=== PATIENT | male | born 1945 | race Caucasian/White ===

== ENCOUNTER → 2022-06-25 08:29 | Outpatient (BNVA) | payer SELFPAY | PROVIDERS: PCP Internal Medicine; Visit Provider Psychiatry & Neurology Neurology | DX: Z13.89 Encounter for screening for other disorder (principal) ==

== ENCOUNTER 2022-07-21 08:00 | Outpatient (RCR) | payer MEDICARE, SELFPAY | END 2023-02-23 11:13 | disposition home or self-care (01) | LOC: HO.PTWFD 08:00 | PROVIDERS: PCP Internal Medicine; Visit Provider Psychiatry & Neurology Neurology | DX: M79.652 Pain in left thigh (principal); M25.561 Pain in right knee | CPT/HCPCS: 97110; 97150; 97162; 97535 ==

== ENCOUNTER 2022-08-19 09:26 | Outpatient (REF) | payer MEDICARE, SELFPAY ==
--- NOTE | 2022-08-19 09:30 | EMG_ITS ---
Please see scanned EMG / Nerve Conduction Report. MTDD
== END 2022-08-19 09:27 | disposition home or self-care (01) ==
LOC: HO.NEURO 09:26
PROVIDERS: PCP Internal Medicine; Visit Provider Psychiatry & Neurology Neurology
DX: R20.0 Anesthesia of skin (principal); R20.2 Paresthesia of skin
CPT/HCPCS: 95885; 95909

== ENCOUNTER 2022-12-15 09:30 | Outpatient (AMB) | payer MEDICARE, SELFPAY ==
[2022-12-15 09:33] VITALS: BP 140/80; PULSE 62; O2SAT 99; BMI 24.4
--- NOTE | 2022-12-15 09:33 | A.OFFVIS_ITS ---
Intake Vital Signs 12/15/22 09:33 Height 5 ft 10 in Weight 170 lb 2 oz BMI 24.4 BP 140/80 H Blood Pressure Location Rt brachial Position Sitting Pulse 62 Pulse Source Pulse Oximeter Pulse Oximetry (%) 99 Oxygen Delivery Method Room Air Intake Visit Reasons: 3m f/u TREMORS - LVM to r/s MD out Intake Note: Patient presents for 3 month follow up tremors. Patient states i had a nerve conduction study done in august. Allergies metronidazole [From Flagyl] Allergy (Severe, Verified 12/15/22 09:39) Hives piroxicam Allergy (Severe, Verified 12/15/22 09:39) Angioedema Medication List - Last Reconciled 12/15/22 by Lluvia Roberts MD albuterol sulfate 90 mcg/actuation 0 mcg inhalation fluticasone propion-salmeterol 250-50 mcg/dose (Wixela Inhub) 1 ea inhalation BID hydrochlorothiazide 12.5 mg PO DAILY lisinopril 20 mg PO DAILY multivitamin 1 tab PO DAILY simvastatin 40 mg PO BEDTIME tamsulosin 0.4 mg PO DAILY HPI HPI Comments History of Present Illness Details 77y/o right handed male comes for evalua tion of tremors and tingling numbness in his left leg . His EMG was c/w -moderately severe axonal and demyelinating neuropathy.PT did not help much. He is more concerned about his sensory symptoms in his left leg. It started about 9 mths ago with mild tingling, numbness in his lateral thigh and leg and he had difficulty jogging because of the symptoms.He was jogging 2.5 miles 4 times a week prior to that .He felt his left leg was weaker , when he did leg extensions at the gym it was weaker. 3 mths later he had pain behind his right knee. He denies back pain. He denies any dysesthesias . No neck pain He is treating himself with acetaminophen . He also has long history of howard hand tremors, it is mild and episodic , stress worsens . It is usually with action. It does not affect his ADLs. His father had similar tremors. [facility] Medical History (Updated 12/15/22 @ 09:58 by Lluvia Roberts MD) Polyneuropathy Squamous cell cancer of scalp and skin of neck Renal calculi Asthma Diverticulosis CKD (chronic kidney disease) BPH (benign prostatic hyperplasia) Hyperlipidemia HTN (hypertension) Knee pain, right Back pain Numbness and tingling of left leg Left thigh pain Surgical History H/O hemorrhoidectomy Hx of tonsillectomy S/P hernia repair Hx of colonoscopy Family History Mother Dementia Father CAD (coronary artery disease) Brother CAD (coronary artery disease) Maternal Grandfather Colon cancer Son Schizophrenia Social History Alcohol intake: never Patient Tobacco Use Status: Never used Tobacco Physical Exam Vital Signs: Last Vital Signs Pulse 62 12/15/22 09:33 BP 140/80 H 12/15/22 09:33 Pulse Ox 99 12/15/22 09:33 Oxygen Delivery Method Room Air 12/15/22 09:33 BMI result Body Mass Index 24.4 Const General: cooperative, healthy appearing and comfortable Nutritional Appearance: average body habitus Orientation/consciousness: patient oriented x3 Limitations: no limitations Eyes Pupils: Equal, round and reactive pupils present Neuro Other: tightness in left thigh Right knee swelling General: patient oriented x3, tone normal, moves all extremities and no focal motor deficits Cranial nerves: Yes Facial sensation intact/muscles of mastication intact, Yes Equal, round and reactive pupils present, Yes Bilaterally intact EOM present, Yes Nystagmus not present, Yes Normal facial strength present, Yes Midline tongue present and Yes Symmetric palate elevation present Gait exam (Neuro): Antalgic gait present Motor exam (neuro): 5/5 motor strength present throughout and Normal motor muscle tone present throughout Deep tendon reflexes (DTR's): Right triceps reflex intensity grade: 1+, Left triceps reflex intensity grade: 1+, Rt Biceps (C5, C6): 1+, Left biceps reflex intensity grade: 1+, Right brachioradialis reflex intensity grade: 1+, Left brachioradialis reflex intensity grade: 1+, Right patellar reflex intensity grade: 1+ and Left patellar reflex intensity grade: 1+ Coordination: [id number] test normal Psych Appearance: grossly normal Assessment & Plan Assessment & Plan (1) Polyneuropathy: Code(s): G62.9 - Polyneuropathy, unspecified (2) Left thigh pain: Comment: likely muscular Code(s): M79.652 - Pain in left thigh (3) Numbness and tingling of left leg: Comment: ? meralgia Code(s): R20.0 - Anesthesia of skin; R20.2 - Paresthesia of skin Plan I will evaluate him with LP - CSF - albumino cytologic dissociation for possible causes of neuropathy Continue exercises. Orders: Orders FL guided lumbar puncture LP 12/15/22 G62.9 - Polyneuropathy, unspecified Coding Level of Care Code Est Pt Level 4 (13220) Diagnoses Polyneuropathy G62.9 Left thigh pain M79.652 Numbness and tingling of left leg R20.0; R20.2
== END 2022-12-15 10:03 | disposition home or self-care (01) ==
PROVIDERS: Visit Provider Psychiatry & Neurology Neurology
DX: G62.9 Polyneuropathy, unspecified (principal); M79.652 Pain in left thigh; R20.0 Anesthesia of skin; R20.2 Paresthesia of skin
CPT/HCPCS: 99214

== ENCOUNTER → 2022-12-15 09:30 | Outpatient (BNVA) | payer MEDICARE, SELFPAY | PROVIDERS: Visit Provider Psychiatry & Neurology Neurology | DX: G62.9 Polyneuropathy, unspecified (principal); M79.652 Pain in left thigh; R20.0 Anesthesia of skin; R20.2 Paresthesia of skin | CPT/HCPCS: 99212 ==

== ENCOUNTER 2023-01-15 09:18 | Day surgery (SDC) | payer MEDICARE, SELFPAY ==
--- NOTE | ~2023-01-15 | FL_ITS ---
FLUOROSCOPIC LUMBAR PUNCTURE INDICATION: Polyneuropathy Risks and benefits and possible complications were discussed with the patient and the consent form was signed. Patient was placed prone on the fluoroscopy table. The back was prepped and draped in routine sterile fashion. Betadine was used as a skin antiseptic. Utilizing fluoroscopic guidance, the L3-4 interlaminar space was accessed with a 22 gauge Jovon spinal needle and clear CSF fluid obtained passively at the needle hub. 8 cc of fluid was passively collected, and sent for analysis. The needle was removed without immediate complications. Total fluoroscopy time: 0.25 min FL/FL guided lumbar puncture LP IMPRESSION: Fluoroscopic lumbar puncture This procedure was performed by Kanu Baez PA-C and supervised by Dr. lKein.
[2023-01-15 09:35] VITALS: BMI 24.4
[2023-01-15 09:51] VITALS: BP 161/58; PULSE 72; RESP 18; TEMP 36.7; O2SAT 98
[2023-01-15 10:02] LABS: MANUAL DIFF FLAG NO
[2023-01-15 10:05] LABS: Basophils Absolute Auto 0.1 X10*3/uL (0.0-0.2); Basophils Percent Auto 0.7 % (0-2); Eosinophils Absolute Auto 0.2 X10*3/uL (0.0-0.4); Eosinophils Percent Auto 3.2 % (0-4); Hematocrit 40.1 % (42.0-52.0); Hemoglobin 13.1 g/dl (14.0-18.0); Imm Gran Abs Auto 0.03 X10*3/uL (0.00-0.03); Imm Gran Pct Auto 0.4 % (0.0-0.4); Lymphocytes Absolute Auto 1.1 X10*3/uL (1.2-4.9); Lymphocytes Percent Auto 15.9 % (20-40); Mean Corpuscular HGB Conc 32.7 g/dl (31.0-36.0); Mean Corpuscular Hemoglobin 31.5 pg (27.0-33.0); Mean Corpuscular Volume 96.4 fL (80.0-98.0); Mean Platelet Volume 9.4 fL (9.4-12.4); Monocytes Absolute Auto 0.6 X10*3/uL (0.1-1.2); Monocytes Percent Auto 8.6 % (2-11); Neutrophils Percent Auto 71.2 % (45-73); Platelet Count 257 X10*3/uL (160-400); Red Blood Count 4.16 X10*6/uL (4.60-5.80); Red Cell Distribution Width 11.7 % (11.0-16.0)
[2023-01-15 10:13] LABS: INTERNATIONAL NORM RATIO 0.9 (0.9-1.1); Prothrombin Time 10.8 SEC (11.1-13.3)
[2023-01-15 10:16] LABS: Partial Thromboplastin Time 30.9 SEC (26.0-36.4)
[2023-01-15 12:00] VITALS: BP 135/78; PULSE 63; RESP 16; TEMP 36.6; O2SAT 97
[2023-01-15 12:15] VITALS: BP 119/71; PULSE 64; RESP 16; O2SAT 97
[2023-01-15 12:28] LABS: CSF Appearance Clear, Colorless; CSF Tube # 2
[2023-01-15 12:30] VITALS: BP 128/71; PULSE 63; RESP 16; O2SAT 97
[2023-01-15 12:45] VITALS: BP 129/74; PULSE 87; RESP 16; O2SAT 97
[2023-01-15 12:50] LABS: Glucose CSF 53 mg/dL; Total Protein CSF 80.4 mg/dL (15-45)
[2023-01-15 13:00] VITALS: BP 134/73; PULSE 84; RESP 16; TEMP 36.6; O2SAT 97
[2023-01-15 13:29] LABS: Appearance CSF CLEAR; CSF Tube # 4; Color CSF COLORLESS; Neutrophils CSF 0 %; Red Blood Cell CSF 0 MM*3; White Blood Cell CSF 4 MM*3
[2023-01-15 13:30] LABS: Appearance CSF CLEAR; CSF Monos 20 %; CSF Monos 40 %; CSF Tube # 1; Color CSF COLORLESS; Lymphocytes CSF 60 %; Lymphocytes CSF 80 %; Neutrophils CSF 0 %; Red Blood Cell CSF 0 MM*3; White Blood Cell CSF 5 MM*3
[2023-01-19 23:48] LABS: Albumin 4.4 g/dL (3.6-5.1); IgG 870 mg/dL (600-1540); IgG Synthesis Rate -0.7 mg/24 h (-9.9-3.3); IgG, CSF 5.1 mg/dL (0.8-7.7)
[2023-01-20 22:44] LABS: Lyme IgG CSF Immunoblot NO BANDS DETECTED; Lyme IgM CSF Immunoblot NO BANDS DETECTED
== END 2023-01-15 13:21 | disposition home or self-care (01) ==
PROVIDERS: Physician Assistant Surgical; Radiology Diagnostic Radiology; PCP Internal Medicine; Visit Provider Psychiatry & Neurology Neurology
PROC: 009U3ZZ Drainage of Spinal Canal, Percutaneous Approach (ICD-10-PCS; CPT 62270; principal; 2023-01-15 11:00)
DX: G62.9 Polyneuropathy, unspecified (principal); M79.652 Pain in left thigh; R20.0 Anesthesia of skin; R20.2 Paresthesia of skin; C44.42 Squamous cell carcinoma of skin of scalp and neck; R25.1 Tremor, unspecified; I12.9 Hypertensive chronic kidney disease with stage 1 through stage 4 chronic kidney disease, or unspecified chronic kidney disease; N18.9 Chronic kidney disease, unspecified; J45.909 Unspecified asthma, uncomplicated; Z79.51 Long term (current) use of inhaled steroids; Z79.899 Other long term (current) drug therapy; Z88.8 Allergy status to other drugs, medicaments and biological substances
CPT/HCPCS: 36415; 62328; 82042; 82945; 84157; 84166; 85025; 85610; 85730; 86335; 86617; 87015; 87070; 87205; 89051

== ENCOUNTER → 2023-01-15 11:00 | Outpatient (BNV) | payer MEDICARE, SELFPAY | PROVIDERS: PCP Internal Medicine; Visit Provider Radiology Diagnostic Radiology | DX: G62.9 Polyneuropathy, unspecified (principal) | CPT/HCPCS: 62328 ==

== ENCOUNTER 2023-02-02 07:50 | Outpatient (AMB) | payer MEDICARE, SELFPAY ==
[2023-02-02 07:58] VITALS: BP 130/84; PULSE 71; O2SAT 98; BMI 24.9
--- NOTE | 2023-02-02 07:58 | MHC.OFFVIS ---
Intake Vital Signs 02/02/23 07:58 Height 5 ft 10 in Weight 173 lb 8 oz BMI 24.9 BP 130/84 Blood Pressure Location Rt brachial Position Sitting Pulse 71 Pulse Source Pulse Oximeter Pulse Oximetry (%) 98 Intake Visit Reasons: 1m f/u TREMORS (ok per MD)/Lvm Intake Note: Pt presents to the office today for a 1 month follow up for tremors. Accompanied by: Spouse Allergies metronidazole [From Flagyl] Allergy (Severe, Verified 02/02/23 07:58) Hives piroxicam Allergy (Severe, Verified 02/02/23 07:58) Angioedema Medication List - Last Reconciled 02/02/23 by Lluvia Roberts MD albuterol sulfate 90 mcg/actuation 0 mcg inhalation calcium carbonate (Calcium) 1,200 mg (2 x 600 mg calcium (1,500 mg)) PO DAILY cholecalciferol (vitamin D3) 25 mcg PO DAILY fluticasone propion-salmeterol 250-50 mcg/dose (Wixela Inhub) 1 ea inhalation BID hydrochlorothiazide 12.5 mg PO DAILY lisinopril 20 mg PO DAILY multivitamin 1 tab PO DAILY pantoprazole (Protonix) 40 mg PO DAILY prednisone 60 mg (3 x 20 mg) PO DAILY simvastatin 40 mg PO BEDTIME tamsulosin 0.4 mg PO DAILY HPI HPI Comments History of Present Illness Details 77y/o right handed male comes for follow up. His LP showed albuminocytologic dissociation c/w CIDP His EMG was c/w -moderately severe axonal and demyelinating neuropathy.PT did not help much. He is more concerned about his sensory symptoms in his left leg. It started about 12 mths ago with mild tingling, numbness in his lateral thigh and leg and he had difficulty jogging because of the symptoms.He was jogging 2.5 miles 4 times a week prior to that .He felt his left leg was weaker , when he did leg extensions at the gym it was weaker. 3 mths later he had pain behind his right knee. He denies back pain. He denies any dysesthesias . No neck pain He is treating himself with acetaminophen . He also has long history of howard hand tremors, it is mild and episodic , stress worsens . It is usually with action. It does not affect his ADLs. His father had similar tremors. COUNTS INCLUDE 234 BEDS AT THE [facility] Medical History (Updated 02/02/23 @ 09:08 by Lluvia Roberts MD) CIDP (chronic inflammatory demyelinating polyneuropathy) Polyneuropathy Squamous cell cancer of scalp and skin of neck Renal calculi Asthma Diverticulosis CKD (chronic kidney disease) BPH (benign prostatic hyperplasia) Hyperlipidemia HTN (hypertension) Knee pain, right Back pain Numbness and tingling of left leg Left thigh pain Surgical History H/O hemorrhoidectomy Hx of tonsillectomy S/P hernia repair Hx of colonoscopy Family History Mother Dementia Father CAD (coronary artery disease) Brother CAD (coronary artery disease) Maternal Grandfather Colon cancer Son Schizophrenia Social History Alcohol intake: never Patient Tobacco Use Status: Never used Tobacco Physical Exam Vital Signs: Last Vital Signs Pulse 71 02/02/23 07:58 BP 130/84 02/02/23 07:58 Pulse Ox 98 02/02/23 07:58 BMI result Body Mass Index 24.9 Const General: cooperative, healthy appearing and comfortable Nutritional Appearance: average body habitus Orientation/consciousness: patient oriented x3 Limitations: no limitations Eyes Pupils: Equal, round and reactive pupils present Neuro Other: tightness in left thigh Right knee swelling General: patient oriented x3, tone normal, moves all extremities and no focal motor deficits Cranial nerves: Yes Facial sensation intact/muscles of mastication intact, Yes Equal, round and reactive pupils present, Yes Bilaterally intact EOM present, Yes Nystagmus not present, Yes Normal facial strength present, Yes Midline tongue present and Yes Symmetric palate elevation present Gait exam (Neuro): Antalgic gait present Motor exam (neuro): 5/5 motor strength present throughout and Normal motor muscle tone present throughout Deep tendon reflexes (DTR's): Right triceps reflex intensity grade: 1+, Left triceps reflex intensity grade: 1+, Rt Biceps (C5, C6): 1+, Left biceps reflex intensity grade: 1+, Right brachioradialis reflex intensity grade: 1+, Left brachioradialis reflex intensity grade: 1+, Right patellar reflex intensity grade: 1+ and Left patellar reflex intensity grade: 1+ Coordination: [id number] test normal Psych Appearance: grossly normal Assessment & Plan Assessment & Plan (1) CIDP (chronic inflammatory demyelinating polyneuropathy): Code(s): G61.81 - Chronic inflammatory demyelinating polyneuritis (2) Polyneuropathy: Code(s): G62.9 - Polyneuropathy, unspecified (3) Left thigh pain: Comment: likely muscular Code(s): M79.652 - Pain in left thigh (4) Numbness and tingling of left leg: Comment: ? meralgia Code(s): R20.0 - Anesthesia of skin; R20.2 - Paresthesia of skin Plan Patient is going to [facility] this week and will be there until June 2023 and wants to initiate treatment there His CSF results showed albuminocytologic dissociation - c/w CIDP Continue exercises. Medications: New pantoprazole (Protonix) 40 mg PO DAILY 30 tabs 6RF cholecalciferol (vitamin D3) 25 mcg PO DAILY 30 caps 6RF prednisone 60 mg (3 x 20 mg) PO DAILY 90 tabs 0RF calcium carbonate (Calcium) 1,200 mg (2 x 600 mg calcium (1,500 mg)) PO DAILY 60 tabs 6RF Coding Level of Care Code Est Pt Level 5 (05255) Diagnoses CIDP (chronic inflammatory demyelinating polyneuropathy) G61.81 Polyneuropathy G62.9 Left thigh pain M79.652 Numbness and tingling of left leg R20.0; R20.2
== END 2023-02-02 08:22 | disposition home or self-care (01) ==
PROVIDERS: PCP Internal Medicine; Visit Provider Psychiatry & Neurology Neurology
DX: G61.81 Chronic inflammatory demyelinating polyneuritis (principal); G62.9 Polyneuropathy, unspecified; M79.652 Pain in left thigh; R20.0 Anesthesia of skin; R20.2 Paresthesia of skin
CPT/HCPCS: 99214

== ENCOUNTER → 2023-02-02 07:50 | Outpatient (BNVA) | payer MEDICARE, SELFPAY | PROVIDERS: PCP Internal Medicine; Visit Provider Psychiatry & Neurology Neurology | DX: G61.81 Chronic inflammatory demyelinating polyneuritis (principal); G62.9 Polyneuropathy, unspecified; M79.652 Pain in left thigh; R20.0 Anesthesia of skin; R20.2 Paresthesia of skin | CPT/HCPCS: 99212 ==

== ENCOUNTER 2023-06-28 07:34 | Outpatient (AMB) | payer MEDICARE, SELFPAY ==
--- NOTE | 2023-06-28 07:36 | MHC.OFFVIS ---
Vital Signs 06/28/23 07:37 Height 5 ft 10 in Weight 175 lb 2 oz BMI 25.1 BP 140/76 H Blood Pressure Location Rt brachial Position Sitting Respiration 16 Pulse 74 Pulse Source Pulse Oximeter Pulse Oximetry (%) 97 Oxygen Delivery Method Room Air Intake Visit Reasons: 5 mo f/u -Tremors- Confirmed Intake Note: Pt presents to the office for a 5 month follow up for tremors. Clinical Education Coordinator Required: No Allergies metronidazole [From Flagyl] Allergy (Severe, Verified 06/28/23 07:37) Hives piroxicam Allergy (Severe, Verified 06/28/23 07:37) Angioedema Medication List - Last Reconciled 06/28/23 by Lluvia Roberts MD albuterol sulfate 90 mcg/actuation 0 mcg inhalation calcium carbonate (Calcium) 1,200 mg (2 x 600 mg calcium (1,500 mg)) PO DAILY cholecalciferol (vitamin D3) 25 mcg PO DAILY fluticasone propion-salmeterol 250-50 mcg/dose (Wixela Inhub) 1 ea inhalation BID hydrochlorothiazide 12.5 mg PO DAILY lisinopril 20 mg PO DAILY multivitamin 1 tab PO DAILY pantoprazole (Protonix) 40 mg PO DAILY prednisone 10 mg PO DAILY simvastatin 40 mg PO BEDTIME tamsulosin 0.4 mg PO DAILY HPI Comments Details: 77y/o right handed male comes for follow up. His LP showed albuminocytologic dissociation c/w CIDP His EMG was c/w -moderately severe axonal and demyelinating neuropathy.PT did not help much He was started on prednisone and currently on 10 mg qd. No side effects . he noticed mild imporvement in his symptoms. He is more concerned about his sensory symptoms in his left leg. It started about 18 mths ago with mild tingling, numbness in his lateral thigh and leg and he had difficulty jogging because of the symptoms.He was jogging 2.5 miles 4 times a week prior to that .He felt his left leg was weaker , when he did leg extensions at the gym it was weaker. 3 mths later he had pain behind his right knee. He denies back pain. He denies any dysesthesias . No neck pain He is treating himself with acetaminophen . He also has long history of howard hand tremors, it is mild and episodic , stress worsens . It is usually with action. It does not affect his ADLs. His father had similar tremors. [facility] Medical History CIDP (chronic inflammatory demyelinating polyneuropathy) Polyneuropathy Squamous cell cancer of scalp and skin of neck Renal calculi Asthma Diverticulosis CKD (chronic kidney disease) BPH (benign prostatic hyperplasia) Hyperlipidemia HTN (hypertension) Knee pain, right Back pain Numbness and tingling of left leg Left thigh pain Surgical History H/O hemorrhoidectomy Hx of tonsillectomy S/P hernia repair Hx of colonoscopy Family History Mother Dementia Father CAD (coronary artery disease) Brother CAD (coronary artery disease) Maternal Grandfather Colon cancer Son Schizophrenia Social History Alcohol intake: never Patient Tobacco Use Status: Never used Tobacco Physical Exam Vital Signs: Last Vital Signs Pulse 74 06/28/23 07:37 Resp 16 06/28/23 07:37 BP 140/76 H 06/28/23 07:37 Pulse Ox 97 06/28/23 07:37 Oxygen Delivery Method Room Air 06/28/23 07:37 BMI result Body Mass Index 25.1 Const General: cooperative, healthy appearing and comfortable Nutritional Appearance: average body habitus Orientation/consciousness: patient oriented x3 Limitations: no limitations Eyes Pupils: Equal, round and reactive pupils present Neuro Other: tightness in left thigh Right knee swelling General: patient oriented x3, tone normal, moves all extremities and no focal motor deficits Cranial nerves: Yes Facial sensation intact/muscles of mastication intact, Yes Equal, round and reactive pupils present, Yes Bilaterally intact EOM present, Yes Nystagmus not present, Yes Normal facial strength present, Yes Midline tongue present and Yes Symmetric palate elevation present Gait exam (Neuro): Antalgic gait present Motor exam (neuro): 5/5 motor strength present throughout and Normal motor muscle tone present throughout Deep tendon reflexes (DTR's): Right triceps reflex intensity grade: 1+, Left triceps reflex intensity grade: 1+, Rt Biceps (C5, C6): 1+, Left biceps reflex intensity grade: 1+, Right brachioradialis reflex intensity grade: 1+, Left brachioradialis reflex intensity grade: 1+, Right patellar reflex intensity grade: 0, Left patellar reflex intensity grade: 0, Right ankle reflex intensity grade: 0 and Left ankle reflex intensity grade: 0 Coordination: [id number] test normal Psych Appearance: grossly normal Assessment & Plan Assessment & Plan (1) CIDP (chronic inflammatory demyelinating polyneuropathy): Code(s): G61.81 - Chronic inflammatory demyelinating polyneuritis Category: Medical (2) Polyneuropathy: Code(s): G62.9 - Polyneuropathy, unspecified Category: Medical (3) Left thigh pain: Comment: likely muscular Code(s): M79.652 - Pain in left thigh Category: Medical Plan Patient was in [facility] since his last visit and is back here now. His CSF results showed albuminocytologic dissociation - c/w CIDP Continue exercises. He tried prednisone for more than 4 mths with minimal response I will trial him on IVIG Loading dose 2 g/kg over 5 days followed by 1 gm/kg q 4 weeks Patient weighs 80kgs - total loading dose 160gm over 5 days 32gm/day followed by 80gm q4 weeks Orders: Orders NE electromyogram (EMG) 06/28/23 G61.81 - Chronic inflammatory demyelinating polyneuritis, G62.9 - Polyneuropathy, unspecified Coding Level of Care Code Est Pt Level 5 (60092) Diagnoses CIDP (chronic inflammatory demyelinating polyneuropathy) G61.81 Polyneuropathy G62.9 Left thigh pain M79.65
[2023-06-28 07:37] VITALS: BP 140/76; PULSE 74; RESP 16; O2SAT 97; BMI 25.1
== END 2023-06-28 08:09 | disposition home or self-care (01) ==
PROVIDERS: PCP Internal Medicine; Visit Provider Psychiatry & Neurology Neurology
DX: G61.81 Chronic inflammatory demyelinating polyneuritis (principal); G62.9 Polyneuropathy, unspecified; M79.652 Pain in left thigh
CPT/HCPCS: 99214

== ENCOUNTER → 2023-06-28 07:34 | Outpatient (BNVA) | payer MEDICARE, SELFPAY | PROVIDERS: PCP Internal Medicine; Visit Provider Psychiatry & Neurology Neurology | DX: G61.81 Chronic inflammatory demyelinating polyneuritis (principal); G62.9 Polyneuropathy, unspecified; M79.652 Pain in left thigh | CPT/HCPCS: 99212 ==

== ENCOUNTER 2023-07-13 08:23 | Outpatient (REF) | payer MEDICARE, SELFPAY ==
--- NOTE | 2023-07-13 08:26 | EMG_ITS ---
Bilateral tibial and peroneal motor studies were performed. Bilateral superficial peroneal, sural, and median and lateral mixed plantar sensory studies were performed. Tibial H reflexes were obtained and needle examination was performed. IMPRESSION: Moderate to severe sensory and motor, motor more than sensory, chronic peripheral neuropathy with features of demyelination and axonal loss. There is significant worsening since his last study in August 2022. MD CARMEN Myers/PRESLEY / [id number]
== END 2023-07-13 08:24 | disposition home or self-care (01) ==
LOC: HO.NEURO 08:23
PROVIDERS: PCP Internal Medicine; Visit Provider Psychiatry & Neurology Neurology
DX: G61.81 Chronic inflammatory demyelinating polyneuritis (principal); G62.9 Polyneuropathy, unspecified
CPT/HCPCS: 95886; 95913

== ENCOUNTER 2023-09-27 13:00 | Outpatient (AMB) | payer MEDICARE, SELFPAY ==
--- NOTE | 2023-09-27 13:10 | MHC.OFFVIS ---
Vital Signs 09/27/23 13:11 Height 5 ft 10 in Weight 171 lb 4 oz BMI 24.6 BP 130/72 Blood Pressure Location Rt brachial Position Sitting Respiration 16 Pulse 90 Pulse Source Pulse Oximeter Pulse Oximetry (%) 97 Oxygen Delivery Method Room Air Intake Visit Reasons: 3 mo f/u - LVM w/add Intake Note: Pt presents for aa 3 month follow up for CIDP. 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 His LP showed albuminocytologic dissociation c/w CIDPHe feels worse . His right leg weak as well . He also has loss of position sense and fine finger movements are affected . His EMG was c/w -moderately severe axonal and demyelinating neuropathy.PT did not help much He was started on prednisone and currently on 10 mg qd. No side effects . he noticed mild imporvement in his symptoms. He is more concerned about his sensory symptoms in his left leg. It started about 18 mths ago with mild tingling, numbness in his lateral thigh and leg and he had difficulty jogging because of the symptoms.He was jogging 2.5 miles 4 times a week prior to that .He felt his left leg was weaker , when he did leg extensions at the gym it was weaker. 3 mths later he had pain behind his right knee. He denies back pain. He denies any dysesthesias . No neck pain He is treating himself with acetaminophen . He also has long history of howard hand tremors, it is mild and episodic , stress worsens . It is usually with action. It does not affect his ADLs. His father had similar tremors. [facility] Medical History CIDP (chronic inflammatory demyelinating polyneuropathy) Polyneuropathy Squamous cell cancer of scalp and skin of neck Renal calculi Asthma Diverticulosis CKD (chronic kidney disease) BPH (benign prostatic hyperplasia) Hyperlipidemia HTN (hypertension) Knee pain, right Back pain Numbness and tingling of left leg Left thigh pain Surgical History H/O hemorrhoidectomy Hx of tonsillectomy S/P hernia repair Hx of colonoscopy Family History Mother Dementia Father CAD (coronary artery disease) Brother CAD (coronary artery disease) Maternal Grandfather Colon cancer Son Schizophrenia Social History Alcohol intake: never Patient Tobacco Use Status: Never used Tobacco Physical Exam Vital Signs: Last Vital Signs Pulse 90 09/27/23 13:11 Resp 16 09/27/23 13:11 BP 130/72 09/27/23 13:11 Pulse Ox 97 09/27/23 13:11 Oxygen Delivery Method Room Air 09/27/23 13:11 BMI result Body Mass Index 24.6 Const General: cooperative, healthy appearing and comfortable Nutritional Appearance: average body habitus Orientation/consciousness: patient oriented x3 Limitations: no limitations Eyes Pupils: Equal, round and reactive pupils present Neuro Other: tightness in left thigh Right knee swelling General: patient oriented x3, tone normal, moves all extremities and no focal motor deficits Cranial nerves: Yes Facial sensation intact/muscles of mastication intact, Yes Equal, round and reactive pupils present, Yes Bilaterally intact EOM present, Yes Nystagmus not present, Yes Normal facial strength present, Yes Midline tongue present and Yes Symmetric palate elevation present Gait exam (Neuro): Antalgic gait present Motor exam (neuro): 5/5 motor strength present throughout and Normal motor muscle tone present throughout Deep tendon reflexes (DTR's): Right triceps reflex intensity grade: 1+, Left triceps reflex intensity grade: 1+, Rt Biceps (C5, C6): 1+, Left biceps reflex intensity grade: 1+, Right brachioradialis reflex intensity grade: 1+, Left brachioradialis reflex intensity grade: 1+, Right patellar reflex intensity grade: 0, Left patellar reflex intensity grade: 0, Right ankle reflex intensity grade: 0 and Left ankle reflex intensity grade: 0 Coordination: [id number] test normal Psych Appearance: grossly normal Assessment & Plan Assessment & Plan (1) CIDP (chronic inflammatory demyelinating polyneuropathy): Code(s): G61.81 - Chronic inflammatory demyelinating polyneuritis Category: Medical (2) Polyneuropathy: Code(s): G62.9 - Polyneuropathy, unspecified Category: Medical (3) Left thigh pain: Comment: likely muscular Code(s): M79.652 - Pain in left thigh Category: Medical Plan Patient was in [facility] since his last visit and is back here now. His CSF results showed albuminocytologic dissociation - c/w CIDP Continue exercises. He tried prednisone for more than 4 mths with minimal response I will trial him on IVIG - patient has chronic kidney disease. will discuss with [facility] front facer prior to starting IVIG Loading dose 2 g/kg over 5 days followed by 1 gm/kg q 4 weeks Patient weighs 80kgs - total loading dose 160gm over 5 days 32gm/day followed by 80gm q4 weeks Orders: Orders Comprehensive Met. Panel Today G61.81 - Chronic inflammatory demyelinating polyneuritis Medications: Refilled prednisone 10 mg PO DAILY 30 tabs 0RF Coding Level of Care Code Est Pt Level 4 (40647) Diagnoses CIDP (chronic inflammatory demyelinating polyneuropathy) G61.81 Polyneuropathy G62.9 Left thigh pain M79.652
[2023-09-27 13:11] VITALS: BP 130/72; PULSE 90; RESP 16; O2SAT 97; BMI 24.6
== END 2023-09-27 14:00 | disposition home or self-care (01) ==
PROVIDERS: PCP Internal Medicine; Visit Provider Psychiatry & Neurology Neurology
DX: G61.81 Chronic inflammatory demyelinating polyneuritis (principal); G62.9 Polyneuropathy, unspecified; M79.652 Pain in left thigh
CPT/HCPCS: 99214

== ENCOUNTER → 2023-09-27 13:00 | Outpatient (BNVA) | payer MEDICARE, SELFPAY | PROVIDERS: PCP Internal Medicine; Visit Provider Psychiatry & Neurology Neurology | DX: G61.81 Chronic inflammatory demyelinating polyneuritis (principal); G62.9 Polyneuropathy, unspecified; M79.652 Pain in left thigh | CPT/HCPCS: 99212 ==

== ENCOUNTER 2023-11-23 08:00 | Outpatient (RCR) | payer MEDICARE, SELFPAY ==
[2023-10-18] VITALS (11 sets, daily range): BP systolic 110–143; BP diastolic 56–71; PULSE 60–77; RESP 16–18; TEMP 36.6–37; O2SAT 96–99; BMI 25.1
[2023-10-18] MEDS: 0.9 % Sodium Chloride 500 ML 250 ML IVCONT (11:06)
[2023-10-18] MEDS: Acetaminophen 325 MG TABLET 650 MG PO (12:51)
[2023-10-18] MEDS: diphenhydrAMINE HCL 50 MG/ML VIAL 25 MG IVPUSH (12:54)
[2023-10-18] MEDS: methylPREDNISolone Sod Succ 40 MG/ML VIAL IVPUSH (12:58)
[2023-10-18] MEDS: Immun Glob G(IgG)/Gly/IGA Ov50 200 ML IV ×2 (15:40→17:42)
[2023-10-19] VITALS (9 sets, daily range): BP systolic 120–139; BP diastolic 55–72; PULSE 50–70; RESP 14; TEMP 36.5; O2SAT 97
[2023-10-19] MEDS: 0.9 % Sodium Chloride 500 ML 250 ML IVCONT (09:36)
[2023-10-19] MEDS: methylPREDNISolone Sod Succ 40 MG/ML VIAL IVPUSH (11:51)
[2023-10-19] MEDS: diphenhydrAMINE HCL 50 MG/ML VIAL 25 MG IVPUSH (11:53)
[2023-10-19] MEDS: Acetaminophen 325 MG TABLET 650 MG PO (11:58)
[2023-10-19] MEDS: Immun Glob G(IgG)/Gly/IGA Ov50 200 ML IV ×3 (12:00→13:38)
[2023-10-19] MEDS: 0.9 % Sodium Chloride Flush 10 ML SYRINGE 5 ML IVFLUSH (14:31)
[2023-10-20] VITALS (8 sets, daily range): BP systolic 116–147; BP diastolic 54–90; PULSE 57–68; RESP 16–18; TEMP 36.9; O2SAT 97
[2023-10-20] MEDS: 0.9 % Sodium Chloride 500 ML 250 ML IVCONT (10:20)
[2023-10-20] MEDS: Acetaminophen 325 MG TABLET 650 MG PO (12:23)
[2023-10-20] MEDS: methylPREDNISolone Sod Succ 40 MG/ML VIAL IVPUSH (12:25)
[2023-10-20] MEDS: diphenhydrAMINE HCL 50 MG/ML VIAL 25 MG IVPUSH (12:29)
[2023-10-20] MEDS: Immun Glob G(IgG)/Gly/IGA Ov50 200 ML IV (12:40)
[2023-10-20] MEDS: 0.9 % Sodium Chloride Flush 10 ML SYRINGE 5 ML IVFLUSH (14:58)
[2023-10-21] VITALS (7 sets, daily range): BP systolic 120–150; BP diastolic 64–76; PULSE 55–65; RESP 18; TEMP 36.8; O2SAT 98
[2023-10-21] MEDS: 0.9 % Sodium Chloride 500 ML 250 ML IVCONT (07:55)
[2023-10-21] MEDS: Immun Glob G(IgG)/Gly/IGA Ov50 200 ML IV ×2 (10:15→12:14)
[2023-10-21] MEDS: diphenhydrAMINE HCL 50 MG/ML VIAL 25 MG IVPUSH (10:16)
[2023-10-21] MEDS: methylPREDNISolone Sod Succ 40 MG/ML VIAL IVPUSH (10:17)
[2023-10-21] MEDS: Acetaminophen 325 MG TABLET 650 MG PO (10:17)
[2023-11-22] VITALS (8 sets, daily range): BP systolic 123–142; BP diastolic 55–79; PULSE 72–85; RESP 16–18; TEMP 36.3; O2SAT 98
[2023-11-22] MEDS: 0.9 % Sodium Chloride 500 ML 250 ML IVCONT (08:25)
[2023-11-22] MEDS: diphenhydrAMINE HCL 50 MG/ML VIAL 25 MG IVPUSH (10:31)
[2023-11-22] MEDS: methylPREDNISolone Sod Succ 40 MG/ML VIAL IVPUSH (10:35)
[2023-11-22] MEDS: Immune Globulin 10% Gammagard 200 ML IV ×2 (10:39→12:24)
[2023-11-23] VITALS (8 sets, daily range): BP systolic 110–130; BP diastolic 50–70; PULSE 62–73; RESP 16–18; TEMP 36.6; O2SAT 99
[2023-11-23] MEDS: 0.9 % Sodium Chloride Flush 10 ML SYRINGE 5 ML IVFLUSH (08:28)
[2023-11-23] MEDS: 0.9 % Sodium Chloride 500 ML 250 ML IVCONT (08:29)
[2023-11-23] MEDS: Immune Globulin 10% Gammagard 200 ML IV ×2 (10:30→12:16)
[2023-11-23] MEDS: diphenhydrAMINE HCL 50 MG/ML VIAL 25 MG IVPUSH (10:30)
[2023-11-23] MEDS: methylPREDNISolone Sod Succ 40 MG/ML VIAL IVPUSH (10:30)
== END 2023-12-08 13:13 | disposition home or self-care (01) ==
LOC: HO.INF 08:00
PROVIDERS: Visit Provider Psychiatry & Neurology Neurology
DX: G61.81 Chronic inflammatory demyelinating polyneuritis (principal)
CPT/HCPCS: 96365; 96366; 96375; J1200; J1569; J2919

== ENCOUNTER 2023-12-02 11:01 | Outpatient (AMB) | payer MEDICARE, SELFPAY ==
--- NOTE | 2023-12-02 11:06 | MHC.OFFVIS ---
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 He had IVIG maintenance dose 40 gm/day for 2 days Nov 21 and 2 days later he developed itching and generalized erythematous rash that did not respond to benadryl. Prior History-His LP showed albuminocytologic dissociation c/w CIDPHe feels worse . His right leg weak as well . He also has loss of position sense and fine finger movements are affected . His EMG was c/w -moderately severe axonal and demyelinating neuropathy.PT did not help much He was started on prednisone and currently on 10 mg qd. No side effects . he noticed mild imporvement in his symptoms. He is more concerned about his sensory symptoms in his left leg. It started about 18 mths ago with mild tingling, numbness in his lateral thigh and leg and he had difficulty jogging because of the symptoms.He was jogging 2.5 miles 4 times a week prior to that .He felt his left leg was weaker , when he did leg extensions at the gym it was weaker. 3 mths later he had pain behind his right knee. He denies back pain. He denies any dysesthesias . No neck pain He is treating himself with acetaminophen . He also has long history of howard hand tremors, it is mild and episodic , stress worsens . It is usually with action. It does not affect his ADLs. His father had similar tremors. [facility] Medical History (Updated 12/02/23 @ 11:26 by Lluvia Roberts MD) Pruritic erythematous rash CIDP (chronic inflammatory demyelinating polyneuropathy) Polyneuropathy Squamous cell cancer of scalp and skin of neck Renal calculi Asthma Diverticulosis CKD (chronic kidney disease) BPH (benign prostatic hyperplasia) Hyperlipidemia HTN (hypertension) Knee pain, right Back pain Numbness and tingling of left leg Left thigh pain Surgical History H/O hemorrhoidectomy Hx of tonsillectomy S/P hernia repair Hx of colonoscopy Family History Mother Dementia Father CAD (coronary artery disease) Brother CAD (coronary artery disease) Maternal Grandfather Colon cancer Son Schizophrenia Social History Alcohol intake: never Patient Tobacco Use Status: Never used Tobacco Physical Exam Vital Signs: Last Vital Signs Pulse 97 12/02/23 11:10 BP 124/80 12/02/23 11:10 Pulse Ox 98 12/02/23 11:10 Oxygen Delivery Method Room Air 12/02/23 11:10 BMI result Body Mass Index 25.8 Const Other: Generalized eryjtematous rash - trunk UE with dryness and mild swelling General: cooperative, healthy appearing and comfortable Nutritional Appearance: average body habitus Orientation/consciousness: patient oriented x3 Limitations: no limitations Eyes Pupils: Equal, round and reactive pupils present Neuro Other: tightness in left thigh Right knee swelling General: patient oriented x3, tone normal, moves all extremities and no focal motor deficits Cranial nerves: Yes Facial sensation intact/muscles of mastication intact, Yes Equal, round and reactive pupils present, Yes Bilaterally intact EOM present, Yes Nystagmus not present, Yes Normal facial strength present, Yes Midline tongue present and Yes Symmetric palate elevation present Gait exam (Neuro): Antalgic gait present Motor exam (neuro): 5/5 motor strength present throughout and Normal motor muscle tone present throughout Deep tendon reflexes (DTR's): Right triceps reflex intensity grade: 1+, Left triceps reflex intensity grade: 1+, Rt Biceps (C5, C6): 1+, Left biceps reflex intensity grade: 1+, Right brachioradialis reflex intensity grade: 1+, Left brachioradialis reflex intensity grade: 1+, Right patellar reflex intensity grade: 0, Left patellar reflex intensity grade: 0, Right ankle reflex intensity grade: 0 and Left ankle reflex intensity grade: 0 Coordination: [id number] test normal Psych Appearance: grossly normal Assessment & Plan Assessment & Plan (1) CIDP (chronic inflammatory demyelinating polyneuropathy): Code(s): G61.81 - Chronic inflammatory demyelinating polyneuritis Category: Medical (2) Polyneuropathy: Code(s): G62.9 - Polyneuropathy, unspecified Category: Medical (3) Left thigh pain: Comment: likely muscular Code(s): M79.652 - Pain in left thigh Category: Medical (4) Pruritic erythematous rash: Comment: Reaction to IVIG Code(s): L29.8 - Other pruritus Category: Medical Plan I will trial him on Prednisone 60mg qd for 1 week and taper . Will hold off on IVIG He will be a good candidate for Vygart sq weekly injections for his CIDP Info on Vygart given to patient Medications: New prednisone 3 tabs qd for 1 week then 2 tabs qd for 1 week then 1 tab qd for 1 week then 1/2 tabq d 1 week orally daily; 60 tabs 0RF Refilled pantoprazole (Protonix) 40 mg PO DAILY 30 tabs 6RF Discontinued prednisone Discontinued Reason: Patient no longer taking 10 mg PO DAILY 30 tabs 0RF Coding Level of Care Code Est Pt Level 4 (25370) Diagnoses CIDP (chronic inflammatory demyelinating polyneuropathy) G61.81 Polyneuropathy G62.9 Left thigh pain M79.652 Pruritic erythematous rash L29.8
[2023-12-02 11:10] VITALS: BP 124/80; PULSE 97; O2SAT 98; BMI 25.8
== END 2023-12-02 11:34 | disposition home or self-care (01) ==
PROVIDERS: PCP Internal Medicine; Visit Provider Psychiatry & Neurology Neurology
DX: G61.81 Chronic inflammatory demyelinating polyneuritis (principal); G62.9 Polyneuropathy, unspecified; M79.652 Pain in left thigh; L29.8 Other pruritus
CPT/HCPCS: 99214

== ENCOUNTER → 2023-12-02 11:01 | Outpatient (BNVA) | payer MEDICARE, SELFPAY | PROVIDERS: PCP Internal Medicine; Visit Provider Psychiatry & Neurology Neurology | DX: G61.81 Chronic inflammatory demyelinating polyneuritis (principal); G62.9 Polyneuropathy, unspecified; M79.652 Pain in left thigh; L29.8 Other pruritus | CPT/HCPCS: 99212 ==

== ENCOUNTER 2024-01-18 11:25 | Outpatient (AMB) | payer MEDICARE, SELFPAY ==
--- NOTE | 2024-01-18 11:34 | MHC.OFFVIS ---
Vital Signs 01/18/24 11:34 Height 5 ft 10 in Intake Visit Reasons: Follow up Intake Note: Patient presents for follow up Allergies metronidazole [From Flagyl] Allergy (Severe, Verified 01/18/24 11:38) Hives piroxicam Allergy (Severe, Verified 01/18/24 11:38) Angioedema HPI Comments Details: 78y/o right handed male comes for follow up. Prednisone 12/08- 12/29 Triamcinalone acetate 12/29-01/12 He had IVIG maintenance dose 40 gm/day for 2 days Nov 21 and 2 days later he developed itching and generalized erythematous rash that did not respond to benadryl. His CIDP symptoms have recurred now. Prior History-His LP showed albuminocytologic dissociation c/w CIDPHe feels worse . His right leg weak as well . He also has loss of position sense and fine finger movements are affected . His EMG was c/w -moderately severe axonal and demyelinating neuropathy.PT did not help much He was started on prednisone and currently on 10 mg qd. No side effects . he noticed mild improvement in his symptoms. He is more concerned about his sensory symptoms in his left leg. It started about 18 mths ago with mild tingling, numbness in his lateral thigh and leg and he had difficulty jogging because of the symptoms.He was jogging 2.5 miles 4 times a week prior to that .He felt his left leg was weaker , when he did leg extensions at the gym it was weaker. 3 mths later he had pain behind his right knee. He denies back pain. He denies any dysesthesias . No neck pain He is treating himself with acetaminophen . He also has long history of howard hand tremors, it is mild and episodic , stress worsens . It is usually with action. It does not affect his ADLs. His father had similar tremors. [facility] Medical History Pruritic erythematous rash CIDP (chronic inflammatory demyelinating polyneuropathy) Polyneuropathy Squamous cell cancer of scalp and skin of neck Renal calculi Asthma Diverticulosis CKD (chronic kidney disease) BPH (benign prostatic hyperplasia) Hyperlipidemia HTN (hypertension) Knee pain, right Back pain Numbness and tingling of left leg Left thigh pain Surgical History H/O hemorrhoidectomy Hx of tonsillectomy S/P hernia repair Hx of colonoscopy Family History Mother Dementia Father CAD (coronary artery disease) Brother CAD (coronary artery disease) Maternal Grandfather Colon cancer Son Schizophrenia Social History Alcohol intake: never Patient Tobacco Use Status: Never used Tobacco Physical Exam Const Other: Generalized eryjtematous rash - trunk UE with dryness and mild swelling General: cooperative, healthy appearing and comfortable Nutritional Appearance: average body habitus Orientation/consciousness: patient oriented x3 Limitations: no limitations Eyes Pupils: Equal, round and reactive pupils present Neuro Other: tightness in left thigh Right knee swelling General: patient oriented x3, tone normal, moves all extremities and no focal motor deficits Cranial nerves: Yes Facial sensation intact/muscles of mastication intact, Yes Equal, round and reactive pupils present, Yes Bilaterally intact EOM present, Yes Nystagmus not present, Yes Normal facial strength present, Yes Midline tongue present and Yes Symmetric palate elevation present Gait exam (Neuro): Antalgic gait present Motor exam (neuro): 5/5 motor strength present throughout and Normal motor muscle tone present throughout Coordination: vchrum-zk-lzaf test normal Psych Appearance: grossly normal Assessment & Plan Assessment & Plan (1) CIDP (chronic inflammatory demyelinating polyneuropathy): Code(s): G61.81 - Chronic inflammatory demyelinating polyneuritis Category: Medical (2) Polyneuropathy: Code(s): G62.9 - Polyneuropathy, unspecified Category: Medical (3) Left thigh pain: Comment: likely muscular Code(s): M79.652 - Pain in left thigh Category: Medical (4) Pruritic erythematous rash: Comment: Reaction to IVIG Code(s): L29.8 - Other pruritus Category: Medical Plan F/u with Reservations And Ticketing Agent will monitor skin reaction and plan to start vygart next week. Patient is very concerned about his skin reaction and wants to take the Vygart Hytrulo slower than recommended - instead of weekly maybe q 2-4 weeks . Coding Level of Care Code Est Pt Level 4 (39049) Complex EM visit Add On G2211 Diagnoses CIDP (chronic inflammatory demyelinating polyneuropathy) G61.81 Polyneuropathy G62.9 Left thigh pain M79.652 Pruritic erythematous rash L29.8
== END 2024-01-18 12:14 | disposition home or self-care (01) ==
PROVIDERS: PCP Internal Medicine; Visit Provider Psychiatry & Neurology Neurology
DX: G61.81 Chronic inflammatory demyelinating polyneuritis (principal); G62.9 Polyneuropathy, unspecified; T50.Z15A Adverse effect of immunoglobulin, initial encounter; L29.89 Other pruritus; M79.652 Pain in left thigh
CPT/HCPCS: 99214; G2211

== ENCOUNTER → 2024-01-18 11:25 | Outpatient (BNVA) | payer MEDICARE, SELFPAY | PROVIDERS: PCP Internal Medicine; Visit Provider Psychiatry & Neurology Neurology | DX: G61.81 Chronic inflammatory demyelinating polyneuritis (principal); G62.9 Polyneuropathy, unspecified; M79.652 Pain in left thigh; L29.89 Other pruritus | CPT/HCPCS: 99212 ==

== ENCOUNTER 2024-01-24 12:59 | Outpatient (AMB) | payer MEDICARE, SELFPAY ==
--- NOTE | 2024-01-24 12:59 | MHC.OFFVIS ---
Intake Visit Reasons: Per to book Wednesday01/24/24 Intake Note: Patient following up on other medication options. Allergies metronidazole [From Flagyl] Allergy (Severe, Verified 01/24/24 13:00) Hives piroxicam Allergy (Severe, Verified 01/24/24 13:00) Angioedema HPI Comments Details: 78y/o right handed male calls for follow up.His skin rash is improving and he wants to start his treatment with Vyvgart Hytrulo. Prednisone 12/08- 12/29 Triamcinalone acetate 12/29-01/12 He had IVIG maintenance dose 40 gm/day for 2 days Nov 21 and 2 days later he developed itching and generalized erythematous rash that did not respond to benadryl. His CIDP symptoms have recurred now. Prior History-Prednisone 12/08- 12/29 Triamcinalone acetate 12/29-01/12 He had IVIG maintenance dose 40 gm/day for 2 days Nov 21 and 2 days later he developed itching and generalized erythematous rash that did not respond to benadryl. His CIDP symptoms have recurred now. His LP showed albuminocytologic dissociation c/w CIDPHe feels worse . His right leg weak as well . He also has loss of position sense and fine finger movements are affected . His EMG was c/w -moderately severe axonal and demyelinating neuropathy.PT did not help much He was started on prednisone and currently on 10 mg qd. No side effects . he noticed mild improvement in his symptoms. He is more concerned about his sensory symptoms in his left leg. It started about 18 mths ago with mild tingling, numbness in his lateral thigh and leg and he had difficulty jogging because of the symptoms.He was jogging 2.5 miles 4 times a week prior to that .He felt his left leg was weaker , when he did leg extensions at the gym it was weaker. 3 mths later he had pain behind his right knee. He denies back pain. He denies any dysesthesias . No neck pain He is treating himself with acetaminophen . He also has long history of howard hand tremors, it is mild and episodic , stress worsens . It is usually with action. It does not affect his ADLs. His father had similar tremors. [facility] Medical History Pruritic erythematous rash CIDP (chronic inflammatory demyelinating polyneuropathy) Polyneuropathy Squamous cell cancer of scalp and skin of neck Renal calculi Asthma Diverticulosis CKD (chronic kidney disease) BPH (benign prostatic hyperplasia) Hyperlipidemia HTN (hypertension) Knee pain, right Back pain Numbness and tingling of left leg Left thigh pain Surgical History H/O hemorrhoidectomy Hx of tonsillectomy S/P hernia repair Hx of colonoscopy Family History Mother Dementia Father CAD (coronary artery disease) Brother CAD (coronary artery disease) Maternal Grandfather Colon cancer Son Schizophrenia Social History Alcohol intake: never Patient Tobacco Use Status: Never used Tobacco Physical Exam Const General: cooperative Orientation/consciousness: patient oriented x3 Neuro General: patient oriented x3 Telehealth Telehealth Telehealth Platform: Telephone Location of provider rendering services: practice address Location of patient: address on file Patient Identification confirmed using: Name, : Yes Telehealth method: voice only Patient verbally consented to treatment: Yes Patient verbally consented to billing insurance company: Yes Patient informed of any privacy concerns related to visit: Yes Assessment & Plan Assessment & Plan (1) CIDP (chronic inflammatory demyelinating polyneuropathy): Code(s): G61.81 - Chronic inflammatory demyelinating polyneuritis Category: Medical (2) Polyneuropathy: Code(s): G62.9 - Polyneuropathy, unspecified Category: Medical (3) Left thigh pain: Comment: likely muscular Code(s): M79.652 - Pain in left thigh Category: Medical (4) Pruritic erythematous rash: Comment: Reaction to IVIG Code(s): L29.8 - Other pruritus Category: Medical Plan F/u with Graduate Advisor will monitor skin reaction and plan to start vygart next week. Vygart Hytrulo slower than recommended - instead of weekly maybe q 2- weeks . Coding Level of Care Code Tele Est Pt Level 3 (75022) Diagnoses CIDP (chronic inflammatory demyelinating polyneuropathy) G61.81 Polyneuropathy G62.9 Left thigh pain M79.652 Pruritic erythematous rash L29.8 Time Spent (min) 12
== END 2024-01-24 13:31 | disposition home or self-care (01) ==
LOC: HO.HSMS 12:59
PROVIDERS: PCP Internal Medicine; Visit Provider Psychiatry & Neurology Neurology
DX: G61.81 Chronic inflammatory demyelinating polyneuritis (principal); G62.9 Polyneuropathy, unspecified; M79.652 Pain in left thigh; L29.89 Other pruritus
CPT/HCPCS: 99442

== ENCOUNTER → 2024-01-24 12:59 | Outpatient (BNVA) | payer MEDICARE, SELFPAY | PROVIDERS: PCP Internal Medicine; Visit Provider Psychiatry & Neurology Neurology ==

== ENCOUNTER 2024-05-30 09:44 | Outpatient (AMB) | payer MEDICARE, SELFPAY ==
--- NOTE | 2024-05-30 09:44 | A.OFFVIS_ITS ---
Intake Visit Reasons: per MD portal message Intake Note: Patient added per MD Allergies metronidazole [From Flagyl] Allergy (Severe, Verified 05/30/24 09:45) Hives piroxicam Allergy (Severe, Verified 05/30/24 09:45) Angioedema Medication List - Last Reconciled 05/30/24 by Lluvia Roberts MD albuterol sulfate 90 mcg/actuation 0 mcg inhalation calcium carbonate (Calcium 600) 1,200 mg (2 x 600 mg calcium (1,500 mg)) PO DAILY cholecalciferol (vitamin D3) 25 mcg PO DAILY bqhhzdjjbynl-qggwiiyvpesr-ixgj 1,008 mg-11,200 unit/5.6 mL (Vyvgart Hytrulo) 5.6 mL subcut Q7D amwbnszpmvzj-tfleoecrlykm-ldgf 1,008 mg-11,200 unit/5.6 mL (Vyvgart Hytrulo) 5.6 mL subcut Q7D fluticasone propion-salmeterol 250-50 mcg/dose (Wixela Inhub) 1 ea inhalation BID multivitamin 1 tab PO DAILY pantoprazole (Protonix) 40 mg PO DAILY prednisone 3 tabs qd for 1 week then 2 tabs qd for 1 week then 1 tab qd for 1 week then 1/2 tabq d 1 week orally daily; simvastatin 40 mg PO BEDTIME tamsulosin 0.4 mg PO DAILY triamcinolone acetonide 0.025% 1 appl topical DAILY HPI Comments Details: 78y/o right handed male calls for follow up.His skin rash is improving and he wants to start his treatment with Vyvgart Hytrulo. Prednisone 12/08- 12/29 Triamcinalone acetate 12/29-01/12 He had IVIG maintenance dose 40 gm/day for 2 days Nov 21 and 2 days later he developed itching and generalized erythematous rash that did not respond to benadryl. His CIDP symptoms have recurred now. Prior History-Prednisone 12/08- 12/29 Triamcinalone acetate 12/29-01/12 He had IVIG maintenance dose 40 gm/day for 2 days Nov 21 and 2 days later he developed itching and generalized erythematous rash that did not respond to benadryl. His CIDP symptoms have recurred now. His LP showed albuminocytologic dissociation c/w CIDPHe feels worse . His right leg weak as well . He also has loss of position sense and fine finger movements are affected . His EMG was c/w -moderately severe axonal and demyelinating neuropathy.PT did not help much He was started on prednisone and currently on 10 mg qd. No side effects . he noticed mild improvement in his symptoms. He is more concerned about his sensory symptoms in his left leg. It started about 18 mths ago with mild tingling, numbness in his lateral thigh and leg and he had difficulty jogging because of the symptoms.He was jogging 2.5 miles 4 times a week prior to that .He felt his left leg was weaker , when he did leg e xtensions at the gym it was weaker. 3 mths later he had pain behind his right knee. He denies back pain. He denies any dysesthesias . No neck pain He is treating himself with acetaminophen . He also has long history of howard hand tremors, it is mild and episodic , stress worsens . It is usually with action. It does not affect his ADLs. His father had similar tremors. [facility] Medical History Pruritic erythematous rash CIDP (chronic inflammatory demyelinating polyneuropathy) Polyneuropathy Squamous cell cancer of scalp and skin of neck Renal calculi Asthma Diverticulosis CKD (chronic kidney disease) BPH (benign prostatic hyperplasia) Hyperlipidemia HTN (hypertension) Knee pain, right Back pain Numbness and tingling of left leg Left thigh pain Surgical History H/O hemorrhoidectomy Hx of tonsillectomy S/P hernia repair Hx of colonoscopy Family History Mother Dementia Father CAD (coronary artery disease) Brother CAD (coronary artery disease) Maternal Grandfather Colon cancer Son Schizophrenia Social History Alcohol intake: never Patient Tobacco Use Status: Never used Tobacco Physical Exam Const General: cooperative Orientation/consciousness: patient oriented x3 Neuro General: patient oriented x3 Telehealth Telehealth Telehealth Platform: Telephone Location of provider rendering services: practice address Location of patient: address on file Patient Identification confirmed using: Name, : Yes Telehealth method: voice only Patient verbally consented to treatment: Yes Patient verbally consented to billing insurance company: Yes Patient informed of any privacy concerns related to visit: Yes Assessment & Plan Assessment & Plan (1) CIDP (chronic inflammatory demyelinating polyneuropathy): Code(s): G61.81 - Chronic inflammatory demyelinating polyneuritis Category: Medical (2) Polyneuropathy: Code(s): G62.9 - Polyneuropathy, unspecified Category: Medical Plan Vygart Hytrulo slower than recommended - instead of weekly maybe q 2- weeks . Patient has no response to Vygart and needs a second opinion with a Neuromuscular specialist. [facility] to [facility] Neuromuscular clinic - Dr. Aldair Dubon Orders: Referrals Neurology Referral G61.81 - Chronic inflammatory demyelinating polyneuritis Coding Level of Care Code Tele Est Pt Level 4 (60261) Diagnoses CIDP (chronic inflammatory demyelinating polyneuropathy) G61.81 Polyneuropathy G62.9
== END 2024-05-31 08:28 | disposition home or self-care (01) ==
LOC: HO.HSMS 09:44
PROVIDERS: PCP Internal Medicine; Visit Provider Psychiatry & Neurology Neurology
DX: G61.81 Chronic inflammatory demyelinating polyneuritis (principal); G62.9 Polyneuropathy, unspecified
CPT/HCPCS: 99214